=== PATIENT | male | born 1965 | race Caucasian/White ===

== ENCOUNTER 2017-05-16 17:24 | Inpatient (IN) ==
[~2017-05-16 17:24] MED LIST: NALOXONE HCL 0.4 MG/ML VIAL IV ONE
[2017-05-16] MEDS ORDERED: 0.9 % SODIUM CHLORIDE 1,000 ML IV SCH (17:30)
[2017-05-16] MEDS ORDERED: 0.9 % SODIUM CHLORIDE 1,000 ML IV ONE ×2 (17:36→18:03)
[2017-05-16 18:37] LABS: Basophils # (Auto) 0.1 K/mcL (0.0-0.3); Basophils % (Auto) 0.3 % (0.0-2.0); Eosinophils # (Auto) 0.2 K/mcL (0.0-0.7); Eosinophils % (Auto) 1.2 % (0.0-7.0); Granulocytes % (Auto) 82.3 % (38.0-78.0); Lymphocytes # (Auto) 2.2 K/mcL (1.5-4.8); Lymphocytes % (Auto) 12.9 % (15.5-49.0); Mean Corpuscular HGB Conc 33.4 g/dL (31.0-36.0); Mean Corpuscular Hemoglobin 31.4 pg (26.0-34.0); Monocytes # (Auto) 0.6 K/mcL (0.1-0.9); Monocytes % (Auto) 3.3 % (1.0-12.0); Platelet Count 387 K/mcL (140-440); RBC 4.84 M/mcL (4.00-5.20); Red Cell Distribution Width 13.5 % (11.5-14.5)
[2017-05-16 19:01] LABS: ALT/SGPT 28 U/l (0-40); Albumin 4.3 gm/dL (3.2-5.2); Albumin/Globulin Ratio 1.5 (1.0-2.3); Alkaline Phosphatase 44 U/L (39-117); Blood Urea Nitrogen 21 mg/dl (8-23)
[2017-05-16] MEDS ORDERED: POTASSIUM CHLORIDE 20 MEQ, MAGNESIUM SULFATE 16.24 MEQ, MVI, ADULT NO.4 WITH VIT K 10 M... IV SCH (19:45)
[2017-05-16] MEDS ORDERED: THIAMINE 100 MG/ML VIAL ONE (19:58)
[2017-05-16] MEDS ORDERED: POTASSIUM CHLORIDE 20 MEQ, MAGNESIUM SULFATE 16.24 MEQ, MVI, ADULT NO.4 WITH VIT K 10 M... IV ONE (19:59)
[2017-05-16] MEDS ORDERED: THIAMINE 100 MG in 0.9 % SODIUM CHLORIDE 50 ML IV ONE (20:00)
[2017-05-16] MEDS ORDERED: LACTATED RINGERS 1,000 ML IV SCH ×2 (21:00→22:10)
--- NOTE | 2017-05-16 21:00 | Emergency Department Note ---
Altered Mental Status HPI - General Chief Complaint: Altered Mental Status Stated Complaint: Altered mental status Time Seen by Provider: 05/16/17 17:29 Source: patient, family, EMS Mode of arrival: EMS Limitations: altered mental status - History of Present Illness HPI Narrative: 52-year-old male patient initially came in as a Reji Royal altered mental status by EMS. We could not figure out his name his history or anything and he was totally uncooperative. Relatively severe altered mental status. EMS gave him 2 of Narcan prior to coming in which did not help; repeated this which again did not help After his and gunner's mate g arrived we were able to get a little bit more history ; though the patient remained incoherent. Apparently the patient drank a bunch of alcohol and locked himself in the bathroom. After 45 minutes when no response was heard his called her gunner's mate g who then called 911. He initially had low blood pressure that responded to fluids by EMS which were continued here After greater than an hour in our ER he began to give us more history. He admits to drinking a pint of hard liquor very quickly; he is an admitted recovering alcoholic. Does not recall what happened after that-he is unable to tell me if he has had a seizure or he hit his head - Related Data Home Medications Medication Instructions Recorded Confirmed Lisinopril [Zestril] 5 mg PO DAILY 01/31/17 01/31/17 Previous Rx's Medication Instructions Recorded LORazepam [Ativan] 1 mg PO Q8HP PRN #20 tablet 01/31/17 Allergies Allergy/AdvReac Type Severity Reaction Status Date / Time No Known Drug Allergies Allergy Verified 01/31/17 17:00 Review of Systems All systems ED: reviewed and negative except as stated. Past Medical History - Past Medical History Attestation: Yes: The following information was validated with the patient. Medical history: Reports: hypertension Surgical history ED: Reports: no surgical history - Social History smoking status: Never smoker Alcohol use: Reports: Heavy, Recent Drug use: Reports: none (Denies) Physical Exam Initial exam showed totally uncooperative Reji Royal male unable to talk or give any meaningful history. Normocephalic atraumatic except for a tiny little area of erythema around his right eye supraorbital ridge. There is no laceration there though. Pupils are equal reactive to light and accommodation. No nasal discharge or congestion. Oropharynx is pink and moist. He has got several missing teeth with relatively poor dentition. Neck is supple without lymphadenopathy or thyromegaly. Heart is regular rhythm but mildly tachycardic. Lungs are clear to auscultation bilaterally without wheezes rales rhonchi or respiratory distress. Abdomen is soft nontender nondistended. No pedal edema. I am unable to assess much on the neuro exam except that he is moving his arms and legs spontaneously, moving away from noxious stimuli and not cooperating for interview or exam. After getting a liter of fluid patient gradually started to come around and was able to give us his name and admitted to drinking alcohol. He became more cooperative and we were able to piece together his history. His vitals stabilized. At no time was there any respiratory compromise Limitations: altered mental status Course Vital Signs Pulse Rate 100 L 05/16/17 17:25 Respiratory Rate 20 L 05/16/17 17:25 Blood Pressure 114/62 05/16/17 17:25 Pulse Oximetry (%) 96 05/16/17 17:25 Pulse Rate 98 H 05/16/17 20:31 Respiratory Rate 16 05/16/17 20:31 Blood Pressure 110/45 05/16/17 20:31 Pulse Oximetry (%) 100 05/16/17 20:31 Altered Mental Status - Lab Data Lab results reviewed: Yes I reviewed the patient's lab results. Result diagrams: 05/16/17 17:46 05/16/17 17:46 Lab Results 05/16/17 05/16/17 05/16/17 Range/Units 17:46 17:46 17:46 WBC 17.1 H (4.5-11.0) K/mcL RBC 4.84 (4.00-5.20) M/mcL Hgb 15.2 H (12.0-15.0) g/dL Hct 45.5 (36.0-48.0) % POC Hct (36.0-48.0) % MCV 94.0 (80.0-100.0) fL MCH 31.4 (26.0-34.0) pg MCHC 33.4 (31.0-36.0) g/dL RDW 13.5 (11.5-14.5) % Plt Count 387 (140-440) K/mcL MPV 7.1 L (7.4-10.4) fL Gran % 82.3 H (38.0-78.0) % Lymph % (Auto) 12.9 L (15.5-49.0) % [place] % (Auto) 3.3 (1.0-12.0) % Eos % (Auto) 1.2 (0.0-7.0) % Baso % (Auto) 0.3 (0.0-2.0) % Gran # 14.1 H (1.8-8.0) K/mcL Lymph # (Auto) 2.2 (1.5-4.8) K/mcL [place] # (Auto) 0.6 (0.1-0.9) K/mcL Eos # (Auto) 0.2 (0.0-0.7) K/mcL Baso # (Auto) 0.1 (0.0-0.3) K/mcL VBG Lactic Acid (0.5-2.2) mmol/L POC Sodium (133-145) mmol/L Sodium (133-145) mmol/L POC Potassium (3.3-5.1) mmol/L Potassium (3.3-5.1) mmol/L POC Chloride (96-108) mmol/L Chloride (96-108) mmol/L Carbon Dioxide (22-30) mmol/L POC Total CO2 (22-30) mmol/L Anion Gap (8-16) POC BUN (8-23) mg/dl BUN (8-23) mg/dl Creatinine (0.6-1.1) mg/dl POC Creatinine (0.6-1.1) mg/dl GFR Calculation Glucose (70-105) mg/dL POC Glucose (70-105) mg/dL Calcium (8.6-10.4) mg/dl POC WB Ioniz Calcium (1.16-1.32) mmol/L Total Bilirubin (0.0-1.0) mg/dL AST (0-37) U/l ALT (0-40) U/l Alkaline Phosphatase (39-117) U/L Ammonia (11-51) umol/L Troponin T (0-0.03) ng/ml Total Protein (5.9-8.4) gm/dL Albumin (3.2-5.2) gm/dL Globulin (2.2-3.7) gm/dL Albumin/Globulin Ratio (1.0-2.3) Salicylates mg/dL [place] < 0.1 mmol/L Ethyl Alcohol 0.431 H (<0.010) gm/dl 05/16/17 05/16/17 05/16/17 Range/Units 17:46 17:46 17:46 WBC (4.5-11.0) K/mcL RBC (4.00-5.20) M/mcL Hgb (12.0-15.0) g/dL Hct (36.0-48.0) % POC Hct 48.0 (36.0-48.0) % MCV (80.0-100.0) fL MCH (26.0-34.0) pg MCHC (31.0-36.0) g/dL RDW (11.5-14.5) % Plt Count (140-440) K/mcL MPV (7.4-10.4) fL Gran % (38.0-78.0) % Lymph % (Auto) (15.5-49.0) % [place] % (Auto) (1.0-12.0) % Eos % (Auto) (0.0-7.0) % Baso % (Auto) (0.0-2.0) % Gran # (1.8-8.0) K/mcL Lymph # (Auto) (1.5-4.8) K/mcL [place] # (Auto) (0.1-0.9) K/mcL Eos # (Auto) (0.0-0.7) K/mcL Baso # (Auto) (0.0-0.3) K/mcL VBG Lactic Acid 8.8 H* (0.5-2.2) mmol/L POC Sodium 141 (133-145) mmol/L Sodium 143 (133-145) mmol/L POC Potassium 3.5 (3.3-5.1) mmol/L Potassium 3.5 (3.3-5.1) mmol/L POC Chloride 100 (96-108) mmol/L Chloride 96 (96-108) mmol/L Carbon Dioxide 17 L (22-30) mmol/L POC Total CO2 21 L (22-30) mmol/L Anion Gap 30.0 H (8-16) POC BUN 25 H (8-23) mg/dl BUN 21 (8-23) mg/dl Creatinine 1.3 H (0.6-1.1) mg/dl POC Creatinine 1.8 H (0.6-1.1) mg/dl GFR Calculation 44 Glucose 87 (70-105) mg/dL POC Glucose 92 (70-105) mg/dL Calcium 9.0 (8.6-10.4) mg/dl POC WB Ioniz Calcium 0.94 L (1.16-1.32) mmol/L Total Bilirubin 0.2 (0.0-1.0) mg/dL AST 34 (0-37) U/l ALT 28 (0-40) U/l Alkaline Phosphatase 44 (39-117) U/L Ammonia 18 (11-51) umol/L Troponin T (0-0.03) ng/ml Total Protein 7.2 (5.9-8.4) gm/dL Albumin 4.3 (3.2-5.2) gm/dL Globulin 2.9 (2.2-3.7) gm/dL Albumin/Globulin Ratio 1.5 (1.0-2.3) Salicylates mg/dL [place] mmol/L Ethyl Alcohol (<0.010) gm/dl 05/16/17 05/16/17 05/16/17 Range/Units 17:46 17:46 20:00 WBC (4.5-11.0) K/mcL RBC (4.00-5.20) M/mcL Hgb (12.0-15.0) g/dL Hct (36.0-48.0) % POC Hct 43.0 (36.0-48.0) % MCV (80.0-100.0) fL MCH (26.0-34.0) pg MCHC (31.0-36.0) g/dL RDW (11.5-14.5) % Plt Count (140-440) K/mcL MPV (7.4-10.4) fL Gran % (38.0-78.0) % Lymph % (Auto) (15.5-49.0) % [place] % (Auto) (1.0-12.0) % Eos % (Auto) (0.0-7.0) % Baso % (Auto) (0.0-2.0) % Gran # (1.8-8.0) K/mcL Lymph # (Auto) (1.5-4.8) K/mcL [place] # (Auto) (0.1-0.9) K/mcL Eos # (Auto) (0.0-0.7) K/mcL Baso # (Auto) (0.0-0.3) K/mcL VBG Lactic Acid (0.5-2.2) mmol/L POC Sodium 142 (133-145) mmol/L Sodium (133-145) mmol/L POC Potassium 3.5 (3.3-5.1) mmol/L Potassium (3.3-5.1) mmol/L POC Chloride 105 (96-108) mmol/L Chloride (96-108) mmol/L Carbon Dioxide (22-30) mmol/L POC Total CO2 21 L (22-30) mmol/L Anion Gap (8-16) POC BUN 22 H (8-23) mg/dl BUN (8-23) mg/dl Creatinine (0.6-1.1) mg/dl POC Creatinine 1.6 H (0.6-1.1) mg/dl GFR Calculation Glucose (70-105) mg/dL POC Glucose 75 (70-105) mg/dL Calcium (8.6-10.4) mg/dl POC WB Ioniz Calcium 0.97 L (1.16-1.32) mmol/L Total Bilirubin (0.0-1.0) mg/dL AST (0-37) U/l ALT (0-40) U/l Alkaline Phosphatase (39-117) U/L Ammonia (11-51) umol/L Troponin T < 0.01 (0-0.03) ng/ml Total Protein (5.9-8.4) gm/dL Albumin (3.2-5.2) gm/dL Globulin (2.2-3.7) gm/dL Albumin/Globulin Ratio (1.0-2.3) Salicylates < 0.3 mg/dL [place] mmol/L Ethyl Alcohol (<0.010) gm/dl 05/16/17 05/16/17 Range/Units 20:14 20:14 WBC (4.5-11.0) K/mcL RBC (4.00-5.20) M/mcL Hgb (12.0-15.0) g/dL Hct (36.0-48.0) % POC Hct Cancelled (36.0-48.0) % MCV (80.0-100.0) fL MCH (26.0-34.0) pg MCHC (31.0-36.0) g/dL RDW (11.5-14.5) % Plt Count (140-440) K/mcL MPV (7.4-10.4) fL Gran % (38.0-78.0) % Lymph % (Auto) (15.5-49.0) % [place] % (Auto) (1.0-12.0) % Eos % (Auto) (0.0-7.0) % Baso % (Auto) (0.0-2.0) % Gran # (1.8-8.0) K/mcL Lymph # (Auto) (1.5-4.8) K/mcL [place] # (Auto) (0.1-0.9) K/mcL Eos # (Auto) (0.0-0.7) K/mcL Baso # (Auto) (0.0-0.3) K/mcL VBG Lactic Acid Cancelled (0.5-2.2) mmol/L POC Sodium Cancelled (133-145) mmol/L Sodium (133-145) mmol/L POC Potassium Cancelled (3.3-5.1) mmol/L Potassium (3.3-5.1) mmol/L POC Chloride Cancelled (96-108) mmol/L Chloride (96-108) mmol/L Carbon Dioxide (22-30) mmol/L POC Total CO2 Cancelled (22-30) mmol/L Anion Gap (8-16) POC BUN Cancelled (8-23) mg/dl BUN (8-23) mg/dl Creatinine (0.6-1.1) mg/dl POC Creatinine Cancelled (0.6-1.1) mg/dl GFR Calculation Glucose (70-105) mg/dL POC Glucose Cancelled (70-105) mg/dL Calcium (8.6-10.4) mg/dl POC WB Ioniz Calcium Cancelled (1.16-1.32) mmol/L Total Bilirubin (0.0-1.0) mg/dL AST (0-37) U/l ALT (0-40) U/l Alkaline Phosphatase (39-117) U/L Ammonia (11-51) umol/L Troponin T (0-0.03) ng/ml Total Protein (5.9-8.4) gm/dL Albumin (3.2-5.2) gm/dL Globulin (2.2-3.7) gm/dL Albumin/Globulin Ratio (1.0-2.3) Salicylates mg/dL [place] mmol/L Ethyl Alcohol (<0.010) gm/dl ABG shows a pH of 7.31 PCO2 44 PO2 of 73 with a lactic acid on repeat 7.9 - Radiology Data Radiology results reviewed: Yes I reviewed the patient's radiology results. CT scan of the head without contrast shows no acute findings - EKG Data EKG attestation: Yes I reviewed and interpreted this EKG. EKG results narrative: EKG shows sinus tachycardia with a rate of 103 otherwise normal sinus rhythm Disposition Pt seen by G[employer] OPERATIONS SUPERINTENDENT/PA only: No Clinical Impression: Metabolic acidosis, Lactic acid acidosis Altered mental status Qualifiers: Altered mental status type: stupor Qualified Code(s): R40.1 - Stupor Alcoholic intoxication Qualifiers: Complication of substance-induced condition: with unspecified complication Qualified Code(s): F10.929 - Alcohol use, unspecified with intoxication, unspecified Summary: After starting workup we continued his IV fluids . after getting his initial lab results back, ordered arterial blood gas and repeat Chem-8 On workup, he had significant alcohol intoxication causing metabolic/lactic acidosis along with altered mental status. He greatly improved with hydration and banana bag. Discussed his case with Dr. Mims who agreed to accept the patient for further evaluation and care Disposition: Xfer As Inpt ([facility]) Condition: Fair
--- NOTE | 2017-05-16 21:31 | Internal Med History&Physical ---
Medical - H&P: HPI Patient information: Note initiated : 05/16/17 at 9:27 pm Patient: Manuel Bagley 52 y/o M admitted on for Altered mental status. History of present illness: Mr. Bagley is a 52 year old man with a history of mild depression, who has been trying to quit drinking. He says he had not drunk anything for about 1 month this evening, when he suddenly decided to drink a lot tonight. He says he drank about 1 pint of vodka. He became very intoxicated and then reportedly locked himself in the bathroom, where his found him unconscious. 911 was called and he was brought to the emergency room. In the ER he was found to have an alcohol level of 0.43 and elevated lactic acid level, with other evidence of metabolic acidosis. He has a scratch on his right eyebrow area indicating he may have had some head trauma. Head CT was negative. The patient is currently awake, but says he really cannot recall what happened after he drank the vodka. He says he has been going to Alcoholics Anonymous, and has been trying to quit, but was just feeling depressed tonight. He says he is worried about being able to pay his bills. Neither he or his have full-time work. He says he has not been seeing a physician or counselor for his depression. Prior to tonight, he said he was sick about a week ago with flulike symptoms, nausea and vomiting. Other than that, he says he has been in his normal state of health, without fever chills, headaches or dizziness, new eye or ear symptoms, sore throat or cough, swollen glands, chest pain or palpitations, shortness of breath, abdominal pain, nausea or vomiting, diarrhea or constipation, dysuria. Medical history: Depression and anxiety Alcohol abuse Palpitations Hypertension Current medications: Lisinopril/HCTZ 03/21.51 p.o. daily Allergies: No known drug allergies Social history: Patient was reportedly fired from his job in January. 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 He is a former smoker. He denies drug use. He has a history of alcohol abuse, but has been attending , trying to quit. He is and lives with his . He has [id number] son who is in the [employer], currently stationed in [facility]. Family history: The patient says his parents are alive and well. One brother has diabetes. He cannot recall any significant family illnesses. Medical - H&P: Meds Home Medications Medication Instructions Recorded Confirmed Type RX: Lisinopril/Hctz 10/12.5MG 1 tab PO DAILY 05/17/17 05/17/17 History [Zestoretic 10/12.5MG] Allergies Allergy/AdvReac Type Severity Reaction Status Date / Time No Known Drug Allergies Allergy Verified 01/31/17 17:00 Medical - H&P: Exam - Constitutional Vitals: Pulse Resp BP Pulse Ox 98 H 16 110/45 100 05/16/17 20:31 05/16/17 20:31 05/16/17 20:31 05/16/17 20:31 On exam, he is a well-developed well-nourished man in no acute distress. Affect is depressed. Head is normocephalic. There is a bruise over his right eyebrow, but no skin laceration. Ears: TMs and canals are clear. Eyes: PERRLA, EOMI, anicteric. Pharynx is clear. Teeth are in fair condition. Neck is supple, without obvious JVD, lymphadenopathy, thyromegaly, bruits Cardiac exam shows regular rate and rhythm with normal S1 and S2 without murmurs , rubs, gallops. Precordium is somewhat hyperdynamic, with associated tachycardia. Lungs are clear to auscultation, without rales, rhonchi, wheezes. Abdomen is soft and nontender, without obvious masses. Bowel sounds are active. Extremities show no cyanosis, clubbing, edema. Neurologic exam: Patient appears currently alert and oriented, calm and cooperative. Affect is somewhat depressed. Cranial nerves and motor exam are grossly nonfocal. Medical - H&P: Reslt - Labs CBC & Chem 7: 05/17/17 03:46 05/17/17 03:46 Labs: Short CBC 05/16/17 Range/Units 17:46 WBC 17.1 H (4.5-11.0) K/mcL Hgb 15.2 H (12.0-15.0) g/dL Hct 45.5 (36.0-48.0) % Plt Count 387 (140-440) K/mcL BMP 12/07/17 17:46 Sodium 143 Potassium 3.5 Chloride 96 Carbon Dioxide 17 L BUN 21 Creatinine 1.3 H Glucose 87 Calcium 9.0 Cardiac Enzymes 05/16/17 Range/Units 17:46 Troponin T < 0.01 (0-0.03) ng/ml Liver Function 05/16/17 Range/Units 17:46 Total Bilirubin 0.2 (0.0-1.0) mg/dL AST 34 (0-37) U/l ALT 28 (0-40) U/l Alkaline Phosphatase 44 (39-117) U/L Albumin 4.3 (3.2-5.2) gm/dL May 16: CBC: White blood cell count 17,000, hemoglobin 15, hematocrit 45, platelets 387, 000. Lactic acid: 8.2. Chemistry panel: Is notable for serum bicarb of 17, anion gap of 30, BUN 21, creatinine 1.3, glucose 87 Troponin is less than 0.01 [place] alcohol level is 0.431 Screening for salicylates and lithium are normal. Urine tox screen is otherwise negative so far. ABG: PH 7.31 PCO2 44, PO2 73, bicarb 22, O2 saturation 93% Head CT: Is reported as no acute disease. EKG: Shows sinus tachycardia at a rate of about 100. No acute ST-T changes are noted. Medical - H&P: A/P (1) Alcoholic ketoacidosis Current visit: Yes Status: Acute (2) Acute alcohol intoxication Current visit: Yes Status: Acute (3) Hypertension Current visit: Yes Status: Chronic (4) History of depression Current visit: Yes Status: Chronic - Narrative A/P Narrative: #1. Neurologic. Patient presents with altered mental status, which is likely due to severely elevated alcohol level. He is much more alert after aggressive hydration in the emergency room. Head CT did not show any worrisome findings. 2. Metabolic. Patient presents with metabolic acidosis, consistent with alcoholic ketoacidosis. -Admit to telemetry for close monitoring. -Aggressive fluid resuscitation. -IV vitamins and other supplements. 3. History of depression. Request [facility] evaluation. 4. CODE STATUS: Full code. His will act as his POA. 5. DVT prophylaxis: Consider heparin, but check coagulation studies first. 6. Alcohol abuse. Offer counseling, rehab resources. 7. Renal. Patient presents with acutely elevated creatinine, suggestive of acute kidney injury. Monitor labs after hydration. 8. Infectious disease. Patient presents with acute leukocytosis, lactic acidosis, suggestive of possible early sepsis. I expect these changes are just due to the stress of acute alcohol intoxication. Recheck labs in the morning. Approximately 55 minutes was spent this evening, reviewing the patient's case with the ER MD, reviewing test results, interviewing and examining the patient, and writing orders.
[2017-05-16] MEDS ORDERED: NALOXONE HCL 0.4 MG/ML VIAL IV ONE (22:08)
[2017-05-16] MEDS ORDERED: DOCUSATE SODIUM 100 MG CAPSULE PO PRN (22:10)
[2017-05-16] MEDS ORDERED: MAGNESIUM HYDROXIDE 30 ML ORAL.SUSP PO PRN (22:10)
[2017-05-16] MEDS ORDERED: ONDANSETRON 4 MG/2 ML VIAL IV PRN (22:10)
[2017-05-16] MEDS ORDERED: ALBUTEROL SULFATE 2.5 MG/3 ML NEBULIZER NEB PRN (22:10)
[2017-05-16] MEDS ORDERED: POTASSIUM CHLORIDE 20 MEQ/10 ML VIAL IV ONE (22:14)
[2017-05-16 22:19] LABS: Amphetamine Screen,Urine NONE DETECTED (NONDETECTED); Benzodiazepines Screen,Urine NONE DETECTED (NONDETECTED); Cocaine Screen,Urine NONE DETECTED (NONDETECTED); Opiate Screen,Urine NONE DETECTED (NONDETECTED)
[2017-05-16] MEDS: POTASSIUM CHLORIDE IV SCH (22:19)
[2017-05-16] MEDS: [UNRECOGNIZED DRUG - OTHER] IV SCH (22:19)
[2017-05-16] MEDS: DEXTROSE 5% IV SCH (22:19)
[2017-05-16] MEDS ORDERED: LORazepam 2 MG/ML VIAL IV PRN (23:03)
[2017-05-16 23:40] LABS: Creatine Kinase MB 7.7 ng/ml (0-4.9)
[2017-05-17 04:44] LABS: Basophils # (Auto) 0 K/mcL (0.0-0.3); Basophils % (Auto) 0.3 % (0.0-2.0); Eosinophils # (Auto) 0.1 K/mcL (0.0-0.7); Granulocytes % (Auto) 68.2 % (38.0-78.0); Lymphocytes # (Auto) 2.3 K/mcL (1.5-4.8); Lymphocytes % (Auto) 21.3 % (15.5-49.0); Mean Cell Volume 93.1 fL (80.0-100.0); Mean Corpuscular HGB Conc 34.3 g/dL (31.0-36.0); Monocytes % (Auto) 9.2 % (1.0-12.0); Platelet Count 307 K/mcL (140-440); RBC 3.88 M/mcL (4.50-5.90); Red Cell Distribution Width 13.6 % (11.5-14.5)
[2017-05-17] MEDS ORDERED: POTASSIUM CHLORIDE 20 MEQ/10 ML VIAL IV ONE (04:48)
[2017-05-17] MEDS: [UNRECOGNIZED DRUG - OTHER] IV SCH ×2 (04:53→11:57)
[2017-05-17] MEDS: POTASSIUM CHLORIDE IV SCH ×2 (04:53→11:57)
[2017-05-17] MEDS: DEXTROSE 5% IV SCH ×2 (04:53→11:57)
[2017-05-17 05:09] LABS: ALT/SGPT 21 U/l (0-40); Albumin 3.4 gm/dL (3.2-5.2); Albumin/Globulin Ratio 1.5 (1.0-2.3); Alkaline Phosphatase 35 U/L (39-117); Bilirubin,Direct < 0.2 mg/dL (0.0-0.3); Blood Urea Nitrogen 15 mg/dl (6-20); Gamma Glutamyl Transpeptidase 17 U/L (8-61); Magnesium 2.2 mg/dL (1.6-2.5)
--- NOTE | 2017-05-17 07:55 | Cat Scan Report ---
History: Found unconscious on the floor Findings: The brain was imaged without contrast at 2.5 mm intervals. The brain appears normal without evidence hemorrhage, infarct, edema or mass effect. The ventricles and cisterns are normal. The bone windows show no skull fracture. Impression: Normal exam Interpreted and Authenticated by: Arben Britton 05/17/17
[2017-05-17] MEDS ORDERED: HEPARIN 5,000 UNIT/ML VIAL SQ SCH (09:00)
[2017-05-17] MEDS: DEXTROSE 5%-1/2NS W/30MEQ KCL 1,000 ML IV SCH ×2 (09:00→15:13)
[2017-05-17] MEDS ORDERED: FLUoxetine HCL 20 MG CAPSULE PO SCH (09:00)
[2017-05-17] MEDS ORDERED: LORazepam 0.5 MG TABLET PO ONE (14:00)
[2017-05-17] MEDS ORDERED: LISINOPRIL 10 MG TABLET PO ONE (15:48)
--- NOTE | 2017-05-17 18:49 | Discharge Summary ---
Medical - DS: Prov Patient information: Note initiated : 05/17/17 at 6:46 pm Service Date, if different from initiated Date: [] Patient: Manuel Bagley 52 y/o M admitted on 05/16/17 for Altered Mental Status/Alcoholic Ketoacidosis. Chief Complaint: [] Date of admission: 05/16/17 22:03 Discharge date: 05/17/17 Primary care physician: Unknown. Admitting clinician: Danielle Sanders Consults: 05/16/17 Consult to Physician [CONS] Stat Comment: Consulting Provider: Danielle Sanders Reason For Exam: Physician to Consult [facility]. Attending physician on discharge: Danielle Sanders Medical - DS: Meds - Discharge Medications Prescriptions: FLUoxetine HCL [Prozac] 20 mg PO DAILY #30 cap LORazepam [Ativan] 0.5 mg PO TIDP PRN #15 tab PRN Reason: Anxiety Active and Home Medications: Discharge medications: Fluoxetine 20 mg p.o. daily, #30 Lorazepam 0.5 mg, 1 p.o. 3 times daily as needed, #15 Lisinopril/HCTZ 10/12.51 p.o. daily Previous home Medications Lisinopril/Hctz 10/12.5MG [Zestoretic 10/12.5MG] 1 tab PO DAILY 05/17/17 [ History Confirmed 05/17/17 Last Taken 05/16/17] Medical - DS: Hosp Hospital course: Mr. Bagley is a 52 year old M May 16, 2017: History of present illness: Mr. Bagley is a 52 year old man with a history of mild depression, who has been trying to quit drinking. He says he had not drunk anything for about 1 month this evening, when he suddenly decided to drink a lot tonight. He says he drank about 1 pint of vodka. He became very intoxicated and then reportedly locked himself in the bathroom, where his found him unconscious. 911 was called and he was brought to the emergency room. In the ER he was found to have an alcohol level of 0.43 and elevated lactic acid level, with other evidence of metabolic acidosis. He has a scratch on his right eyebrow area indicating he may have had some head trauma. Head CT was negative. The patient is currently awake, but says he really cannot recall what happened after he drank the vodka. He says he has been going to Alcoholics Anonymous, and has been trying to quit, but was just feeling depressed tonight. He says he is worried about being able to pay his bills. Neither he or his have full-time work. He says he has not been seeing a physician or counselor for his depression. Prior to ton, he said he was sick about a week ago with flulike symptoms, nausea and vomiting. Other than that, he says he has been in his normal state of health, without fever chills, headaches or dizziness, new eye or ear symptoms, sore throat or cough, swollen glands, chest pain or palpitations, shortness of breath, abdominal pain, nausea or vomiting, diarrhea or constipation, dysuria. May 17: Hospital course: Patient was admitted to the ICU overnight, and treated with aggressive fluid resuscitation. Labs are much improved this morning. The patient is awake and alert. He continues to report moderate anxiety and depression. He denies being suicidal. He met with a counselor from [facility] today, and has agreed to follow-up with her early next week. Otherwise, he denies fever or chills, chest pain or palpitations, shortness of breath, abdominal pain, nausea or vomiting, diarrhea or constipation or dysuria. On exam: He continues to have a mildly anxious affect. Neck is supple without obvious lymphadenopathy or JVD. Cardiac exam shows regular rate and rhythm. He continues to be mildly tachycardic. Lungs are clear to auscultation. Abdomen soft and nontender. Extremities show no edema. Neurologic exam is grossly nonfocal. A/P Narrative: #1. Neurologic. Patient presents with altered mental status, which is likely due to severely elevated alcohol level. He is much more alert after aggressive hydration in the emergency room. Head CT did not show any worrisome findings. 2. Metabolic. Patient presents with metabolic acidosis, consistent with alcoholic ketoacidosis. He was admitted to telemetry and monitored overnight. Labs are improved today. He received an additional 12 hours or so IV fluids after this morning's labs. -Received in ER: IV vitamins and other supplements. 3. History of depression. He met with the [facility] counselor. He should follow-up with her early this coming week. -Start Prozac 20 mg daily #30 -#15 tablets of lorazepam 0.5 mg were given to use 3 times daily as needed excessive anxiety. 4. CODE STATUS: Full code. His will act as his POA. 6. Alcohol abuse. Offer counseling, rehab resources. 7. Renal. Patient presents with acutely elevated creatinine, suggestive of acute kidney injury. Resolved. 8. Infectious disease. Patient presents with acute leukocytosis, lactic acidosis, suggestive of possible early sepsis. I expect these changes are just due to the stress of acute alcohol intoxication. Labs are improved this morning. Discharge diagnosis: Acute alcoholic ketoacidosis. Alcohol abuse. Depression. - Time Spent with Patient Total time spent providing and/or coordinating discharge services: Greater than 30 minutes Medical - DS: Exam - Constitutional Vitals: Vital Signs Temp Pulse Pulse Resp BP BP Pulse Ox 05/17/17 15:44 97.9 F 16 173/98 97 05/17/17 13:01 99.2 F H 90 16 134/77 99 05/17/17 08:11 99 H 18 94 05/17/17 08:08 150/90 05/17/17 08:00 103 H 18 96 05/17/17 04:01 94 H 133/78 96 05/17/17 00:03 96 H 99 05/17/17 00:01 95 H 133/78 96 05/16/17 22:16 100 H 125/71 97 05/16/17 22:05 106 H 141/81 97 05/16/17 21:53 99.6 F H 98 H 105 H 18 110/45 141/81 98 05/16/17 21:31 95 H 106/67 100 05/16/17 21:01 96 H 112/52 97 05/16/17 20:31 98 H 16 110/45 100 05/16/17 20:16 100 H 16 112/60 98 05/16/17 20:15 100 H 20 115/66 97 05/16/17 20:02 105 H 17 122/69 99 Intake and Output 05/17/17 05/17/17 05/17/17 05:59 13:59 21:59 Intake Total 758 / 758 1020 / 1020 1000 / 1000 Output Total 550 / 550 250 / 250 400 / 400 Balance 208 / 208 770 / 770 600 / 600 Intake: IV 158 / 158 1000 / 1000 Dextrose 5%-1/2Ns W/30Meq KCl 1 1000 / 1000 ,000 ml @ 200 mls/hr IV .Q5H [facility] Rx#:[id number] Oral 600 / 600 1020 / 1020 Output: Void Amount 550 / 550 400 / 400 Urine/Stool Mix 250 / 250 Other: Meal Lunch Percent of Meal Consumed 25% # Bowel Movements 1 Weight 159 lb 4.8 oz Patient Weight 05/18/17 05:59 Weight 159 lb 4.8 oz Medical - DS: Data Labs on day of discharge: Labs from last 24 hours 05/17/17 05/17/17 05/17/17 03:46 03:46 03:46 WBC 10.9 RBC 3.88 L Hgb 12.4 L Hct 36.1 L POC Hct MCV 93.1 MCH 32.0 MCHC 34.3 RDW 13.6 Plt Count 307 MPV 7.1 L Gran % 68.2 Lymph % (Auto) 21.3 Foster % (Auto) 9.2 Eos % (Auto) 1.0 Baso % (Auto) 0.3 Gran # 7.4 Lymph # (Auto) 2.3 Foster # (Auto) 1.0 H Eos # (Auto) 0.1 Baso # (Auto) 0 PT INR APTT VBG Lactic Acid 3.8 H POC Sodium Sodium 137 POC Potassium Potassium 4.0 POC Chloride Chloride 100 Carbon Dioxide 21 L POC Total CO2 Anion Gap 16.0 POC BUN BUN 15 Creatinine 0.7 POC Creatinine GFR Calculation 107 Glucose 128 H POC Glucose Uric Acid 8.0 Calcium 7.8 L POC WB Ioniz Calcium Phosphorus 1.5 L Magnesium 2.2 Total Bilirubin 0.2 Direct Bilirubin < 0.2 GGT 17 AST 30 ALT 21 Alkaline Phosphatase 35 L Ammonia Lactate Dehydrogenase 239 Total Creatine Kinase CK-MB (CK-2) Troponin T Total Protein 5.7 L Albumin 3.4 Globulin 2.3 Albumin/Globulin Ratio 1.5 Triglycerides 85 Salicylates Urine Opiates Screen Urine Methadone Screen Ur Barbiturates Screen Ur Phencyclidine Scrn Ur Amphetamines Screen U Benzodiazepines Scrn [place] Urine Cocaine Screen U Marijuana (THC) Screen Ethyl Alcohol 05/16/17 05/16/17 05/16/17 22:38 22:38 21:37 WBC RBC Hgb Hct POC Hct MCV MCH MCHC RDW Plt Count MPV Gran % Lymph % (Auto) Foster % (Auto) Eos % (Auto) Baso % (Auto) Gran # Lymph # (Auto) Foster # (Auto) Eos # (Auto) Baso # (Auto) PT 12.6 INR 0.9 APTT 26 VBG Lactic Acid POC Sodium Sodium POC Potassium Potassium POC Chloride Chloride Carbon Dioxide POC Total CO2 Anion Gap POC BUN BUN Creatinine POC Creatinine GFR Calculation Glucose POC Glucose Uric Acid Calcium POC WB Ioniz Calcium Phosphorus Magnesium Total Bilirubin Direct Bilirubin GGT AST ALT Alkaline Phosphatase Ammonia Lactate Dehydrogenase Total Creatine Kinase 216 H CK-MB (CK-2) 7.7 H Troponin T Total Protein Albumin Globulin Albumin/Globulin Ratio Triglycerides Salicylates Urine Opiates Screen None detected Urine Methadone Screen None detected Ur Barbiturates Screen None detected Ur Phencyclidine Scrn None detected Ur Amphetamines Screen None detected U Benzodiazepines Scrn None detected [place] Urine Cocaine Screen None detected U Marijuana (THC) Screen None detected Ethyl Alcohol 05/16/17 05/16/17 05/16/17 20:14 20:14 20:00 WBC RBC Hgb Hct POC Hct Cancelled MCV MCH MCHC RDW Plt Count MPV Gran % Lymph % (Auto) Foster % (Auto) Eos % (Auto) Baso % (Auto) Gran # Lymph # (Auto) Foster # (Auto) Eos # (Auto) Baso # (Auto) PT INR APTT VBG Lactic Acid Cancelled 6.4 H* POC Sodium Cancelled Sodium POC Potassium Cancelled Potassium POC Chloride Cancelled Chloride Carbon Dioxide POC Total CO2 Cancelled Anion Gap POC BUN Cancelled BUN Creatinine POC Creatinine Cancelled GFR Calculation Glucose POC Glucose Cancelled Uric Acid Calcium POC WB Ioniz Calcium Cancelled Phosphorus Magnesium Total Bilirubin Direct Bilirubin GGT AST ALT Alkaline Phosphatase Ammonia Lactate Dehydrogenase Total Creatine Kinase CK-MB (CK-2) Troponin T Total Protein Albumin Globulin Albumin/Globulin Ratio Triglycerides Salicylates Urine Opiates Screen Urine Methadone Screen Ur Barbiturates Screen Ur Phencyclidine Scrn Ur Amphetamines Screen U Benzodiazepines Scrn [place] Urine Cocaine Screen U Marijuana (THC) Screen Ethyl Alcohol 05/16/17 05/16/17 05/16/17 20:00 19:50 19:50 WBC RBC Hgb Hct POC Hct 43.0 Pending MCV MCH MCHC RDW Plt Count MPV Gran % Lymph % (Auto) Foster % (Auto) Eos % (Auto) Baso % (Auto) Gran # Lymph # (Auto) Foster # (Auto) Eos # (Auto) Baso # (Auto) PT INR APTT VBG Lactic Acid Pending POC Sodium 142 Pending Sodium POC Potassium 3.5 Pending Potassium POC Chloride 105 Pending Chloride Carbon Dioxide POC Total CO2 21 L Pending Anion Gap POC BUN 22 H Pending BUN Creatinine POC Creatinine 1.6 H Pending GFR Calculation Glucose POC Glucose 75 Pending Uric Acid Calcium POC WB Ioniz Calcium 0.97 L Pending Phosphorus Magnesium Total Bilirubin Direct Bilirubin GGT AST ALT Alkaline Phosphatase Ammonia Lactate Dehydrogenase Total Creatine Kinase Pending CK-MB (CK-2) Pending Troponin T Total Protein Albumin Globulin Albumin/Globulin Ratio Triglycerides Salicylates Urine Opiates Screen Urine Methadone Screen Ur Barbiturates Screen Ur Phencyclidine Scrn Ur Amphetamines Screen U Benzodiazepines Scrn [place] Urine Cocaine Screen U Marijuana (THC) Screen Ethyl Alcohol 05/16/17 05/16/17 05/16/17 17:46 17:46 17:46 WBC RBC Hgb Hct POC Hct MCV MCH MCHC RDW Plt Count MPV Gran % Lymph % (Auto) Foster % (Auto) Eos % (Auto) Baso % (Auto) Gran # Lymph # (Auto) Foster # (Auto) Eos # (Auto) Baso # (Auto) PT INR APTT VBG Lactic Acid POC Sodium Sodium POC Potassium Potassium POC Chloride Chloride Carbon Dioxide POC Total CO2 Anion Gap POC BUN BUN Creatinine POC Creatinine GFR Calculation Glucose POC Glucose Uric Acid Calcium POC WB Ioniz Calcium Phosphorus Magnesium Total Bilirubin Direct Bilirubin GGT AST ALT Alkaline Phosphatase Ammonia 18 Lactate Dehydrogenase Total Creatine Kinase CK-MB (CK-2) Troponin T < 0.01 Total Protein Albumin Globulin Albumin/Globulin Ratio Triglycerides Salicylates < 0.3 Urine Opiates Screen Urine Methadone Screen Ur Barbiturates Screen Ur Phencyclidine Scrn Ur Amphetamines Screen U Benzodiazepines Scrn [place] Urine Cocaine Screen U Marijuana (THC) Screen Ethyl Alcohol 05/16/17 05/16/17 05/16/17 17:46 17:46 17:46 WBC RBC Hgb Hct POC Hct MCV MCH MCHC RDW Plt Count MPV Gran % Lymph % (Auto) Foster % (Auto) Eos % (Auto) Baso % (Auto) Gran # Lymph # (Auto) Foster # (Auto) Eos # (Auto) Baso # (Auto) PT INR APTT VBG Lactic Acid 8.8 H* POC Sodium Sodium 143 POC Potassium Potassium 3.5 POC Chloride Chloride 96 Carbon Dioxide 17 L POC Total CO2 Anion Gap 30.0 H POC BUN BUN 21 Creatinine 1.3 H POC Creatinine GFR Calculation 44 Glucose 87 POC Glucose Uric Acid Calcium 9.0 POC WB Ioniz Calcium Phosphorus Magnesium Total Bilirubin 0.2 Direct Bilirubin GGT AST 34 ALT 28 Alkaline Phosphatase 44 Ammonia Lactate Dehydrogenase Total Creatine Kinase CK-MB (CK-2) Troponin T Total Protein 7.2 Albumin 4.3 Globulin 2.9 Albumin/Globulin Ratio 1.5 Triglycerides Salicylates Urine Opiates Screen Urine Methadone Screen Ur Barbiturates Screen Ur Phencyclidine Scrn Ur Amphetamines Screen U Benzodiazepines Scrn [place] Urine Cocaine Screen U Marijuana (THC) Screen Ethyl Alcohol 0.431 H 05/16/17 17:46 WBC RBC Hgb Hct POC Hct MCV MCH MCHC RDW Plt Count MPV Gran % Lymph % (Auto) Foster % (Auto) Eos % (Auto) Baso % (Auto) Gran # Lymph # (Auto) Foster # (Auto) Eos # (Auto) Baso # (Auto) PT INR APTT VBG Lactic Acid POC Sodium Sodium POC Potassium Potassium POC Chloride Chloride Carbon Dioxide POC Total CO2 Anion Gap POC BUN BUN Creatinine POC Creatinine GFR Calculation Glucose POC Glucose Uric Acid Calcium POC WB Ioniz Calcium Phosphorus Magnesium Total Bilirubin Direct Bilirubin GGT AST ALT Alkaline Phosphatase Ammonia Lactate Dehydrogenase Total Creatine Kinase CK-MB (CK-2) Troponin T Total Protein Albumin Globulin Albumin/Globulin Ratio Triglycerides Salicylates Urine Opiates Screen Urine Methadone Screen Ur Barbiturates Screen Ur Phencyclidine Scrn Ur Amphetamines Screen U Benzodiazepines Scrn [place] < 0.1 Urine Cocaine Screen U Marijuana (THC) Screen Ethyl Alcohol May 16: CBC: White blood cell count 17,000, hemoglobin 15, hematocrit 45, platelets 387, 000. Lactic acid: 8.2. Chemistry panel: Is notable for serum bicarb of 17, anion gap of 30, BUN 21, creatinine 1.3, glucose 87 Troponin is less than 0.01 Lovely alcohol level is 0.431 Screening for salicylates and lithium are normal. Urine tox screen is otherwise negative so far. ABG: PH 7.31 PCO2 44, PO2 73, bicarb 22, O2 saturation 93% Head CT: Is reported as no acute disease. EKG: Shows sinus tachycardia at a rate of about 100. No acute ST-T changes are noted. Medical - DS: A/P - Patient/Caregiver Discharge Instructions Activity: increase activity as tolerated Diet: Regular Diet Additional Instructions: 1. Alcohol abuse. -You presented with severe alcohol poisoning. This can be fatal. -Please stop drinking altogether. Please follow-up with the counselor he met today from [facility], early next week. -Please continue going to AA meetings. 2. Depression and anxiety. -Please follow-up with a counselor as directed. -Start Prozac/fluoxetine 1 each day. This can take 2-4 weeks to improve how you feel, but might help with feelings of depression and also with cravings for alcohol. -Your given as short prescription for lorazepam, to be used as needed for increased anxiety. Please use this very sparingly. Prescriptions: FLUoxetine HCL [Prozac] 20 mg PO DAILY #30 cap LORazepam [Ativan] 0.5 mg PO TIDP PRN #15 tab PRN Reason: Anxiety - Problem Maintenance (1) Alcoholic ketoacidosis Status: Acute (2) Acute alcohol intoxication Status: Acute (3) Hypertension Status: Chronic (4) History of depression Status: Chronic - Follow up Plan Disposition: Home, Self-Care Prognosis: Good Rehab Potential: Good Overall status at discharge: patient is progressing back to baseline Medical - DS: Qual - VTE Deep Vein Thrombosis/Pulmonary Embolism Present on Admission: No
== END 2017-05-17 19:33 | disposition home or self-care (01) | DRG 641 ==
LOC: EDSEX → EDBD → MERGE 17:24 → ED 17:24 → ICU 21:53
PROVIDERS: ADMIT Internal Medicine; ATTEND Internal Medicine